=== PATIENT | female | born 1970 | race Caucasian/White ===

== ENCOUNTER 2016-08-22 08:53 | Inpatient (IN) | payer BC ==
[~2016-08-22] VITALS: Ht 167.6 cm; Wt 90.7 kg
[~2016-08-22 08:53] MED LIST: CYANOCOBALAM1000 MCG PO; IRON325 M1 PO; VITAMIN D5000 UNI1 PO
[2016-08-22 11:03] VITALS: BP 148/94
[2016-08-22 16:34] VITALS: BP 147/83
[2016-08-22 19:20] LABS: HEMATOCRIT 41.4 % (36.0-46.0); MCH 29.4 PG (29.0-34.0); MCHC 32.9 G/DL (30.0-36.0); MCV 89.6 FL (83-99); MEAN PLAT.VOLUME 11.7 uM^3 (9.5-12.4); PLATELET COUNT 89 K/uL (156-360); RBC DIS.WIDTH-CV 12.9 % (11.8-14.6); RBC DIS.WIDTH-SD 42.5 % (39-53); RED BLOOD COUNT 4.62 M/uL (3.80-5.20); WHITE BLOOD COUNT 12.8 K/uL (4.1-10.2)
[2016-08-22 19:53] LABS: ANION GAP 7 MEQ/L (2-14); CHLORIDE 105 MEQ/L (99-109); GFR ESTIMATE (CALCULATED) > 59 mL/min/; GLUCOSE 190 mg/dL (70-99); POTASSIUM 4.1 MEQ/L (3.7-5.4); SAMPLE HEMOLYSIS CHECK 0; SAMPLE ICTERIC CHECK 0; SAMPLE LIPEMIA CHECK 0; SODIUM 136 MEQ/L (136-147); UREA NITROGEN (BUN) 9 mg/dL (9-23)
[2016-08-22 20:58] VITALS: BP 138/86
[2016-08-22 23:51] VITALS: BP 135/85
[2016-08-23 03:53] VITALS: BP 122/69
[2016-08-23 07:24] LABS: HEMATOCRIT 35.7 % (36.0-46.0); MCH 29.4 PG (29.0-34.0); MCHC 33.1 G/DL (30.0-36.0); RBC DIS.WIDTH-CV 12.8 % (11.8-14.6); RBC DIS.WIDTH-SD 42.3 % (39-53); RED BLOOD COUNT 4.01 M/uL (3.80-5.20); WHITE BLOOD COUNT 12.8 K/uL (4.1-10.2)
[2016-08-23 07:25] LABS: PLATELET COUNT 263 K/uL (156-360)
[2016-08-23 07:40] LABS: ANION GAP 6 MEQ/L (2-14); CHLORIDE 102 MEQ/L (99-109); GFR ESTIMATE (CALCULATED) > 59 mL/min/; GLUCOSE 146 mg/dL (70-99); POTASSIUM 3.7 MEQ/L (3.7-5.4); SAMPLE HEMOLYSIS CHECK 0; SAMPLE ICTERIC CHECK 0; SAMPLE LIPEMIA CHECK 0; SODIUM 134 MEQ/L (136-147); UREA NITROGEN (BUN) 8 mg/dL (9-23)
[2016-08-23 08:25] VITALS: BP 127/77
[2016-08-23 12:07] VITALS: BP 128/75
[2016-08-23 16:11] VITALS: BP 131/79
[2016-08-23 23:07] VITALS: BP 126/69
[2016-08-24 00:24] VITALS: BP 118/67
[2016-08-24 03:59] VITALS: BP 128/74
[2016-08-24 07:03] LABS: HEMATOCRIT 34.5 % (36.0-46.0); MCH 29.6 PG (29.0-34.0); MCHC 33.3 G/DL (30.0-36.0); MCV 88.7 FL (83-99); MEAN PLAT.VOLUME 11.2 uM^3 (9.5-12.4); PLATELET COUNT 215 K/uL (156-360); RBC DIS.WIDTH-SD 42.2 % (39-53); RED BLOOD COUNT 3.89 M/uL (3.80-5.20); WHITE BLOOD COUNT 11.1 K/uL (4.1-10.2)
[2016-08-24 07:32] LABS: ANION GAP 8 MEQ/L (2-14); CHLORIDE 104 MEQ/L (99-109); GFR ESTIMATE (CALCULATED) > 59 mL/min/; GLUCOSE 126 mg/dL (70-99); POTASSIUM 3.5 MEQ/L (3.7-5.4); SAMPLE HEMOLYSIS CHECK 0; SAMPLE ICTERIC CHECK 0; SAMPLE LIPEMIA CHECK 0; SODIUM 140 MEQ/L (136-147); UREA NITROGEN (BUN) 5 mg/dL (9-23)
[2016-08-24 08:25] VITALS: BP 155/81
[2016-08-24] MEDS ORDERED: TRAMADOL HCL50 MG PO (09:29)
== END 2016-08-24 11:05 | disposition home or self-care (01) | DRG 743 ==
LOC: 2SOUTH 08:53 → 2EASTP 16:21
PROVIDERS: Obstetrics & Gynecology Gynecologic Oncology
DX: D25.9 Leiomyoma of uterus, unspecified (principal); N80.1 Endometriosis of ovary; N80.3 Endometriosis of pelvic peritoneum; N83.202 Unspecified ovarian cyst, left side; N13.5 Crossing vessel and stricture of ureter without hydronephrosis; E55.9 Vitamin D deficiency, unspecified; D53.8 Other specified nutritional anemias
CPT/HCPCS: 36415; 80048; 85027; 86900; 86901; 86920; 88108; 88305; 88307; 88331; 88332; 94799; J0131; J0690; J1100; J1170; J1650; J1885; J2175; J2250; J2405; J2710; J2765; J3010; J7120